=== PATIENT | male | born 1990 | race Caucasian/White ===

== ENCOUNTER 2017-07-29 18:44 | Emergency (ER) | payer OTHER ==
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
[2017-07-29 18:54] VITALS: BP 120/70; PULSE 76; TEMP 97.9; BMI 26.5
--- NOTE | 2017-07-29 19:14 | PDOC ---
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 comPlaints of pain today, but is ambulatory 07/29/17 19:32 Occurred: reports: just prior to arrival, this afternoon Severity: reports: mild Pain Location: reports: lower extremity (left knee ) Loss of Consciousness: no loss of consciousness Associated Symptoms (Fall): denies symptoms Past History - Travel Traveled outside of the country in the last 30 days: No Close contact w/someone who was outside of country & ill: No - Past Medical History Allergies/Adverse Reactions: Allergies Allergy/AdvReac Type Severity Reaction Status Date / Time ampicillin Allergy Verified 07/29/17 18:54 Penicillins Allergy Verified 07/29/17 18:54 Home Medications: Ambulatory Orders NK [No Known Home Medication] 07/29/17 COPD: No - Suicide/Smoking/Psychosocial Hx Smoking History: Never smoked Information on smoking cessation initiated: No Hx Alcohol Use: No Drug/Substance Use Hx: No Substance Use Type: None Review of Systems - Review of Systems Able to Perform ROS?: Yes Is the patient limited Maltese proficient: Yes Constitutional: Yes: See HPI. No: Symptoms Reported HEENTM: Yes: See HPI. No: Symptoms Reported Respiratory: No: Symptoms reported Musculoskeletal: Yes: Symptoms Reported, See HPI, Joint Pain, Joint Swelling Integumentary: Yes: Symptoms Reported, See HPI, Bruising All Other Systems: Reviewed and Negative *Physical Exam - Vital Signs Last Vital Signs Temp Pulse Resp BP Pulse Ox 97.9 F 76 19 120/70 100 07/29/17 18:52 07/29/17 18:52 07/29/17 18:52 07/29/17 18:52 07/29/17 18:52 - Physical Exam General Appearance: Yes: Nourished, Appropriately Dressed, Apparent Distress, Mild Distress HEENT: positive: VARGHESE, Normal ENT Inspection, TMs Normal, Pharynx Normal Neck: positive: Tender, Supple. negative: Lymphadenopathy (R), Lymphadenopathy (L) Respiratory/Chest: positive: Lungs Clear, Normal Breath Sounds Cardiovascular: negative: Regular Rhythm Extremity: positive: Normal Capillary Refill, Normal Range of Motion, Tender, Other (no crepitus, step-off, no bony deformity. No medial or lateral tenderness , is ambulatory without unsteadiness or limp. 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 NML intact, Fully Oriented, Alert, Normal Mood/ Affect, Normal Response, Motor Strength 5/5 Progress Note - Progress Note Progress Note: Left knee contusion, no evidence of significant injury, will treat with ice and Ibuprofen *DC/Admit/Observation/Transfer Diagnosis at time of Disposition: Left knee pain Qualifiers: Chronicity: acute Qualified Code(s): M25.562 - Pain in left knee - Discharge Dispostion Disposition: HOME Condition at time of disposition: Stable Admit: No - Referrals - Patient Instructions Printed Discharge Instructions: DI for Contusion Additional Instructions: Rest, ice to area on and off for 15 minutes 4-6 times a day Avoid heavy lifting or exercise until pain and swelling is resolved or until further directed Keep area highly elevated to reduce swelling Use splints/Gutierrez wrap as directed Followup with orthopedist in one to 2 days if not improving, if significantly improved may wait one week for followup with orthopedist May use ibuprofen 2-200 mg tablets every 6 hours as needed for pain - Post Discharge Activity
== END 2017-07-29 19:40 | disposition home or self-care (01) ==
LOC: JERFT 18:44
DX: S80.02XA Contusion of left knee, initial encounter (principal); W18.39XA Other fall on same level, initial encounter; Y35.811A Legal intervention involving manhandling, law enforcement official injured, initial encounter; Y93.89 Activity, other specified; Y92.89 Other specified places as the place of occurrence of the external cause; Y99.0 Civilian activity done for income or pay
CPT/HCPCS: 99281-25

== ENCOUNTER 2018-02-13 23:51 | Emergency (ER) | payer OTHER ==
[2018-02-14 00:09] VITALS: BP 146/101; PULSE 94; TEMP 98; BMI 28.7
[2018-02-14] MEDS ORDERED: BACITRACIN 15 GM TUBE TOPICAL OINTMENT TP ONE (00:39)
[2018-02-14] MEDS ORDERED: BACITRACIN 0.9 GM PACKET ONE (00:46)
--- NOTE | 2018-02-14 00:53 | PDOC ---
History of Present Illness - General Chief Complaint: Injury Stated Complaint: INJURY/[employer] Time Seen by Provider: 02/14/18 00:16 History Source: Patient Exam Limitations: No Limitations - History of Present Illness Initial Comments: 02/14/18 00:41 Patient is a 28-year-old male with no past medical history here with c/o fall about 1 hours ago. 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 States left knee pain 2/10 when he attempts to put pressure on the knee. There was no head strike. No LOC. Tetanus is less than 5 years. PMHX neg PSOCHX: neg etoh, durg, cig PFamHx: non contributory ALL: PCN GENERAL/CONSTITUTIONAL: [No fever or chills. No weakness. No weight change.] HEAD, EYES, EARS, NOSE AND THROAT: [No change in vision. No ear pain or discharge. No sore throat.] CARDIOVASCULAR: [No chest pain or shortness of breath.] RESPIRATORY: [No cough, wheezing, or hemoptysis.] GASTROINTESTINAL: [No nausea, vomiting, diarrhea or constipation. No rectal bleeding.] GENITOURINARY: [No dysuria, frequency, or change in urination.] MUSCULOSKELETAL: (+) joint or muscle swelling or pain. No neck or back pain.] SKIN AND BREASTS: [No rash or easy bruising.] NEUROLOGIC: [No headache, vertigo, loss of consciousness, or loss of sensation.] PSYCHIATRIC: [No depression or anxiety.] ENDOCRINE: [No increased thirst. No abnormal weight change.] HEMATOLOGIC/LYMPHATIC: [No anemia, easy bleeding, or history of blood clots.] ALLERGIC/IMMUNOLOGIC: [No hives or skin allergy. No latex allergy.] GENERAL: [The patient is awake, alert, and fully oriented, in no acute distress. ] HEAD: [Normal with no signs of trauma.] EYES: [Pupils equal, round and reactive to light, extraocular movements intact, sclera anicteric, conjunctiva clear.] ENT: [Ears normal, nares patent, oropharynx clear without exudates. Moist mucous membranes.] NECK: [Normal range of motion, supple without lymphadenopathy, JVD, or masses.] LUNGS: [Breath sounds equal, clear to auscultation bilaterally. No wheezes, and no crackles.] HEART: [Regular rate and rhythm, normal S1 and S2 without murmur, rub.] ABDOMEN: [Soft, nontender, normoactive bowel sounds. No guarding, no rebound. No masses.] EXTREMITIES: [Normal range of motion, no edema. No clubbing or cyanosis. No cords, erythema, (+) tenderness to the left tibial plateau.] NEUROLOGICAL: [Cranial nerves II through XII grossly intact. Normal speech, normal gait.] PSYCH: [Normal mood, normal affect.] SKIN: [Warm, Dry, normal turgor, (+) patient's bilateral elbows and bilateral knees.] Past History - Past Medical History Allergies/Adverse Reactions: Allergies Allergy/AdvReac Type Severity Reaction Status Date / Time ampicillin Allergy Verified 02/14/18 00:09 Penicillins Allergy Verified 02/14/18 00:09 Home Medications: Ambulatory Orders NK [No Known Home Medication] 07/29/17 COPD: No - Suicide/Smoking/Psychosocial Hx Smoking History: Never smoked Hx Alcohol Use: No Drug/Substance Use Hx: No Substance Use Type: None *Physical Exam - Vital Signs Last Vital Signs Temp Pulse Resp BP Pulse Ox 98.0 F 94 H 18 146/101 100 02/14/18 00:07 02/14/18 00:07 02/14/18 00:07 02/14/18 00:07 02/14/18 00:07 ED Treatment Course - RADIOLOGY Radiology Studies Ordered: Category Date Time Status KNEE 3 POS-LEFT [RAD] Stat Radiology 02/14/18 00:38 Ordered Medical Decision Making - Medical Decision Making 02/14/18 00:41 Patient is a 28-year-old male with no past medical history here with c/o fall about 1 hours ago. knee injury will get xray offered motrin or pain declined. I discussed the physical exam findings, ancillary test results and final diagnoses with the patient. I answered all of the patient's questions. The patient was satisfied with the care received and felt comfortable with the discharge plan and treatment plan. The Patient agrees to follow up with the primary care physician within 24-72 hours. *DC/Admit/Observation/Transfer Diagnosis at time of Disposition: Knee abrasion Qualifiers: Encounter type: initial encounter Laterality: unspecified laterality Qualified Code(s): S80.219A - Abrasion, unspecified knee, initial encounter Contusion Qualifiers: Encounter type: initial encounter Contusion area: knee Laterality: left Qualified Code(s): S80.02XA - Contusion of left knee, initial encounter Abrasion of elbow Qualifiers: Encounter type: initial encounter Laterality: unspecified laterality Qualified Code(s): S50.319A - Abrasion of unspecified elbow, initial encounter - Discharge Dispostion Disposition: HOME Condition at time of disposition: Stable - Referrals - Patient Instructions Printed Discharge Instructions: DI for Abrasion, DI for Contusion Additional Instructions: Your Discharge Instructions: You must call primary care physician within 24 hours to arrange follow-up. Return to the Emergency Department with any new, persistent or worsening symptoms, for fever, chills, SOB, dizziness or any other concerning changes that may occur. You must follow up with your employee health personnel in 24 hours. - Post Discharge Activity
== END 2018-02-14 01:20 | disposition home or self-care (01) ==
LOC: JER 23:51
DX: S80.02XA Contusion of left knee, initial encounter (principal); S50.312A Abrasion of left elbow, initial encounter; S50.311A Abrasion of right elbow, initial encounter; S80.212A Abrasion, left knee, initial encounter; S80.211A Abrasion, right knee, initial encounter; W18.39XA Other fall on same level, initial encounter; Y93.02 Activity, running; Y92.89 Other specified places as the place of occurrence of the external cause; Y99.0 Civilian activity done for income or pay; Y35.891A Legal intervention involving other specified means, law enforcement official injured, initial encounter; Z88.0 Allergy status to penicillin
CPT/HCPCS: 73560-TC-LT-FY; 99281-25

== ENCOUNTER 2018-09-25 23:41 | Emergency (ER) | payer BC ==
[2018-09-26 00:18] VITALS: BP 133/72; PULSE 72; TEMP 97.5; BMI 28.7
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
== END 2018-09-26 01:14 | disposition home or self-care (01) ==
LOC: JER 23:41
DX: Z77.21 Contact with and (suspected) exposure to potentially hazardous body fluids (principal); Y35.891A Legal intervention involving other specified means, law enforcement official injured, initial encounter; Y93.89 Activity, other specified; Y92.89 Other specified places as the place of occurrence of the external cause; Y99.0 Civilian activity done for income or pay
CPT/HCPCS: 99282-25

== ENCOUNTER 2020-06-29 19:31 | Emergency (ER) | payer BC, OTHER | END 2020-06-29 20:50 | disposition home or self-care (01) | LOC: FER 19:31 | DX: S00.81XA Abrasion of other part of head, initial encounter (principal) | CPT/HCPCS: 99282-25 ==

== ENCOUNTER 2020-10-16 21:12 | Emergency (ER) | payer BC, OTHER ==
[2020-10-16 21:19] VITALS: BP 144/92; PULSE 74; TEMP 98.5; BMI 28.7
== END 2020-10-16 22:38 | disposition home or self-care (01) ==
LOC: FER 21:12
DX: T59.91XA Toxic effect of unspecified gases, fumes and vapors, accidental (unintentional), initial encounter (principal)
CPT/HCPCS: 99282-25

== ENCOUNTER 2020-10-18 18:02 | Emergency (ER) | payer OTHER ==
[2020-10-18 18:21] VITALS: BP 144/91; PULSE 84; TEMP 98.9; BMI 28.7
== END 2020-10-18 18:46 | disposition home or self-care (01) ==
LOC: FER 18:02
DX: M25.561 Pain in right knee (principal)
CPT/HCPCS: 99281-25

== ENCOUNTER 2021-01-04 21:04 | Emergency (ER) | payer OTHER ==
[2021-01-04 21:13] VITALS: BP 123/81; PULSE 80; TEMP 99; BMI 28.7
== END 2021-01-04 21:35 | disposition home or self-care (01) ==
LOC: FER 21:04
DX: M25.562 Pain in left knee (principal)
CPT/HCPCS: 99281-25

== ENCOUNTER 2022-04-26 00:16 | Emergency (ER) | payer OTHER ==
[2022-04-26] MEDS ORDERED: IBUPROFEN 600 MG TABLET (FP) PO ONE ×2 (00:25→00:27)
[2022-04-26 00:27] VITALS: BP 130/88; PULSE 86; RESP 18; TEMP 98.1; BMI 28.7
== END 2022-04-26 00:55 | disposition home or self-care (01) ==
LOC: FER 00:16
DX: S80.211A Abrasion, right knee, initial encounter (principal); M25.561 Pain in right knee; Y93.57 Activity, non-running track and field events
CPT/HCPCS: 73560-TC-RT-FY; 99283-25

== ENCOUNTER 2023-05-28 18:36 | Emergency (ER) | payer OTHER ==
[2023-05-28 19:29] VITALS: BP 135/85; PULSE 59; RESP 20; TEMP 98.4; BMI 27.9
[2023-05-28] MEDS ORDERED: IBUPROFEN 600 MG TABLET (FP) PO ONE (19:54)
== END 2023-05-28 19:50 | disposition home or self-care (01) ==
LOC: FER 18:36
DX: M54.50 Low back pain, unspecified (principal); X58.XXXA Exposure to other specified factors, initial encounter; Y99.0 Civilian activity done for income or pay
CPT/HCPCS: 99283-25

== ENCOUNTER 2023-09-26 23:44 | Emergency (ER) | payer OTHER ==
[2023-09-26 23:58] VITALS: RESP 16; BMI 20.9
[2023-09-27 00:11] VITALS: BP 141/91; PULSE 81; TEMP 98.6
== END 2023-09-27 00:45 | disposition home or self-care (01) ==
LOC: FER 23:44
DX: S46.211A Strain of muscle, fascia and tendon of other parts of biceps, right arm, initial encounter (principal); Y35.811A Legal intervention involving manhandling, law enforcement official injured, initial encounter
CPT/HCPCS: 99283-25

== ENCOUNTER 2023-12-10 18:43 | Emergency (ER) | payer OTHER ==
[2023-12-10 18:53] VITALS: BP 140/90; PULSE 72; RESP 16; TEMP 98.3; BMI 28.7
== END 2023-12-10 19:52 | disposition home or self-care (01) ==
LOC: FER 18:43
DX: M25.561 Pain in right knee (principal); W01.198A Fall on same level from slipping, tripping and stumbling with subsequent striking against other object, initial encounter; Y35.91XA Legal intervention, means unspecified, law enforcement official injured, initial encounter
CPT/HCPCS: 99282-25